=== PATIENT | female | born 1975 | race Caucasian/White ===

== ENCOUNTER 2020-10-14 10:00 | Inpatient (IN) | payer OTHER ==
[~2020-10-14] VITALS: Ht 172.7 cm; Wt 98.4 kg
[2020-10-14] MEDS ORDERED: AVAPRO300 MG PO (11:53)
[2020-10-14] MEDS ORDERED: LAMOTRIGINE250 MG PO (12:03)
[2020-10-14] MEDS ORDERED: WELLBUTRIN XL150 M1 PO (12:04)
[2020-10-14] MEDS ORDERED: BUSPIRONE HCL30 MG PO (12:04)
[2020-10-19] MEDS ORDERED: FAMOTIDINE20 MG PO (07:14)
[2020-10-19] MEDS ORDERED: NEURONTIN600 MG PO (07:14)
[2020-10-19] MEDS ORDERED: POLY119PG PO (07:14)
[2020-10-19] MEDS ORDERED: IBUPROFEN800 MG PO (07:14)
[2020-10-19] MEDS ORDERED: SIMETHICONE125 M1 PO (07:14)
== END 2020-10-19 10:11 | disposition home or self-care (01) | DRG 743 ==
LOC: O/R 10-17 05:10 → SURH 10-17 10:00 → OB/GYN 10-17 20:53
PROVIDERS: ADMIT Obstetrics & Gynecology; ATTEND Obstetrics & Gynecology
PROC: 0UB70ZX Excision of Bilateral Fallopian Tubes, Open Approach, Diagnostic (ICD-10-PCS; 2020-10-17)
PROC: 0UT90ZZ Resection of Uterus, Open Approach (ICD-10-PCS; principal; 2020-10-17 16:30)
DX: D25.2 Subserosal leiomyoma of uterus (principal); N72 Inflammatory disease of cervix uteri; N85.8 Other specified noninflammatory disorders of uterus; D64.9 Anemia, unspecified; I10 Essential (primary) hypertension; Z20.822 Contact with and (suspected) exposure to COVID-19